=== PATIENT | female | born 1980 | race Hispanic/Latino ===

== ENCOUNTER 2022-06-02 18:34 | Emergency (ER) | payer SELFPAY ==
[~2022-06-02] VITALS: Ht 162.6 cm; Wt 59.0 kg
[2022-06-02] MEDS ORDERED: KETOROLAC TROMETHAMINE 30 MG/ML VIAL IV STA (19:28)
[2022-06-02] MEDS ORDERED: DEXAMETHASONE SOD PHOS 10 MG/1 ML VIAL IV ONE (19:30)
[2022-06-02] MEDS ORDERED: DIPHENHYDRAMINE HCL 25 MG CAP PO ONE (19:30)
[2022-06-02] MEDS ORDERED: SODIUM CHLORIDE 0.9% 1000ML 1,000 ML IV ONE (19:30)
[2022-06-02] MEDS ORDERED: PROCHLORPERAZINE MALEATE TAB 10 MG TAB PO PRN (19:30)
[2022-06-02] MEDS ORDERED: FIORICET 50-301 EACH PO (19:34)
[2022-06-02] MEDS ORDERED: PROMETHAZINE HC25 M1 PO (19:34)
[2022-06-02] MEDS ORDERED: ONDANSETRON HCL INJ 2MG/ML 2ML 2 MG/ML VIAL IV STA (19:55)
== END 2022-06-02 21:06 | disposition home or self-care (01) ==
LOC: ER 18:44
DX: G43.909 Migraine, unspecified, not intractable, without status migrainosus (principal); Z88.1 Allergy status to other antibiotic agents
CPT/HCPCS: 99283; J1100; J1885; J2405; J7030